=== PATIENT | male | born 1960 | race Caucasian/White ===

== ENCOUNTER 2018-06-21 07:40 | Observation (INO) | payer OTHER ==
[2018-06-21] MEDS ORDERED: HYDROmorphone 2 MG/ML Syringe IVPUSH ONE ×2 (07:46→08:06)
[2018-06-21] MEDS ORDERED: HYDROmorphone 2 MG/ML Syringe ONE (07:46)
[2018-06-21] MEDS ORDERED: Lidocaine 1% 20 ML MDV INJECT ONE ×2 (07:50→08:15)
--- NOTE | 2018-06-21 07:51 | EDM.PDOC ---
ED HPI GENERAL MEDICAL PROBLEM - General Stated Complaint: POSSIBLE BROKEN LEFT LEG Time Seen by Provider: 06/21/18 07:51 Source of Information: Reports: Patient - History of Present Illness INITIAL COMMENTS - FREE TEXT/NARRATIVE: HISTORY AND PHYSICAL: History of present illness: [Patient slipped on ice just prior to arrival he has obvious deformity of the right ankle suspected fracture and dislocation foot is neurovascularly intact Eyes any head injury or loss of consciousness ] Review of systems: As per history of present illness and below otherwise all systems reviewed and negative. Past medical history: As per history of present illness and as reviewed below otherwise noncontributory. Surgical history: As per history of present illness and as reviewed below otherwise noncontributory. Social history: No reported history of drug or alcohol abuse. Family history: As per history of present illness and as reviewed below otherwise noncontributory. Physical exam: HEENT: Atraumatic, normocephalic, pupils reactive, negative for conjunctival pallor or scleral icterus, mucous membranes moist, throat clear, neck supple, nontender, trachea midline. Lungs: Clear to auscultation, breath sounds equal bilaterally, chest nontender. Heart: S1S2, regular, negative for clicks, rubs, or JVD. Abdomen: Soft, nondistended, nontender. Negative for masses or hepatosplenomegaly. Negative for costovertebral tenderness. Pelvis: Stable nontender. Genitourinary: Deferred. Rectal: Deferred. Extremities: Atraumatic, negative for cords or calf pain. Neurovascular unremarkable. Neuro: Awake, alert, oriented. Cranial nerves II through XII unremarkable. Cerebellum unremarkable. Motor and sensory unremarkable throughout. Exam nonfocal. Diagnostics: []CBC CMP UA INR EKG Chest 1 view Right ankle complete Therapeutics: Dilaudid2 mg IV [address] sevilla consult in to evaluate and treat Conscious sedation performed via anesthesia-with propofol and intubation, reduction easily achieved lower extremity is splinted remains neurovascularly intact no complications Patient will be going to surgery on an outpatient basis with Dr. Sevilla Impression: [] right ankle fracture with dislocation Definitive disposition and diagnosis as appropriate pending reevaluation and review of above. right ankle Pain Score (Numeric/FACES): 10 - Related Data Allergies Allergy/AdvReac Type Severity Reaction Status Date / Time No Known Allergies Allergy Verified 06/21/18 09:54 Home Meds: Home Meds . [No Known Home Meds] 06/21/18 [History] ED ROS GENERAL - Review of Systems Review Of Systems: See Below ED EXAM, GENERAL - Physical Exam Exam: See Below Course - Vital Signs Last Recorded V/S: Last Vital Signs Temp 97.0 F 06/21/18 07:40 Pulse 79 06/21/18 09:50 Resp 16 06/21/18 09:50 BP 102/67 06/21/18 09:50 Pulse Ox 90 L 06/21/18 09:50 - Orders/Labs/Meds Orders: Active Orders 24 hr Category Date Time Status EKG Documentation Completion [RC] STAT Care 06/21/18 08:49 Active Notify Provider Consults [RC] ASDIRECTED Care 06/21/18 08:47 Active Consult to Physician [CONS] Stat Cons 06/21/18 08:46 Active Ankle Min 3V Rt [CR] Stat Exams 06/21/18 07:50 Ordered Chest 1V Frontal [CR] Stat Exams 06/21/18 08:49 Ordered UA RFX LISA AND CULT IF INDIC [URIN] Stat Lab 06/21/18 08:48 Ordered Labs: Laboratory Tests 06/21/18 06/21/18 06/21/18 Range/Units 07:45 07:45 07:45 WBC 14.61 H (4.0-11.0) K/uL RBC 5.54 (4.50-5.90) M/uL Hgb 18.1 H (13.0-17.0) g/dL Hct 49.8 (38.0-50.0) % MCV 89.9 (80.0-98.0) fL MCH 32.7 H (27.0-32.0) pg MCHC 36.3 (31.0-37.0) g/dL RDW Std Deviation 41.6 (28.0-62.0) fl RDW Coeff of Ar 13 (11.0-15.0) % Plt Count 341 (150-400) K/uL MPV 11.80 (7.40-12.00) fL Neut % (Auto) 43.8 L (48.0-80.0) % Lymph % (Auto) 42.1 H (16.0-40.0) % [place] % (Auto) 10.3 (0.0-15.0) % Eos % (Auto) 3.2 (0.0-7.0) % Baso % (Auto) 0.6 (0.0-1.5) % Neut # (Auto) 6.4 H (1.4-5.7) K/uL Lymph # (Auto) 6.2 H (0.6-2.4) K/uL [place] # (Auto) 1.5 H (0.0-0.8) K/uL Eos # (Auto) 0.5 (0.0-0.7) K/uL Baso # (Auto) 0.1 (0.0-0.1) K/uL Nucleated RBC % 0.0 /100WBC Nucleated RBCs # 0 K/uL INR 1.00 Sodium 139 (136-148) mmol/L Potassium 3.4 L (3.5-5.1) mmol/L Chloride 104 (98-107) mmol/L Carbon Dioxide 22.0 (21.0-32.0) mmol/L BUN 13 (7.0-18.0) mg/dL Creatinine 1.4 H (0.8-1.3) mg/dL Est Cr Clr Drug Dosing 68.50 mL/min Estimated GFR (MDRD) 52.4 ml/min Glucose 145 H (74-106) mg/dL Calcium 9.5 (8.5-10.1) mg/dL Total Bilirubin 0.4 (0.2-1.0) mg/dL AST 21 (15-37) IU/L ALT 42 (14-63) IU/L Alkaline Phosphatase 99 (46-116) U/L Total Protein 7.8 (6.4-8.2) g/dL Albumin 3.5 (3.4-5.0) g/dL Globulin 4.3 H (2.6-4.0) g/dL Albumin/Globulin Ratio 0.8 L (0.9-1.6) Meds: Medications Discontinued Medications Generic Name Dose Route Start Last Admin Trade Name Freq PRN Reason Stop Dose Admin Hydromorphone HCl 2 mg 06/21/18 07:46 06/21/18 07:48 Dilaudid IVPUSH 06/21/18 07:47 2 mg ONETIME ONE Administration Hydromorphone HCl Confirm 06/21/18 07:46 06/21/18 07:51 Dilaudid Administered 06/21/18 07:47 Not Given Dose 2 mg .ROUTE .STK-MED ONE Hydromorphone HCl 2 mg 06/21/18 08:06 06/21/18 08:14 Dilaudid IVPUSH 06/21/18 08:07 2 mg ONETIME ONE Administration Lidocaine Confirm 06/21/18 08:45 Xylocaine-Mpf 2% Administered 06/21/18 08:46 Dose 5 ml .ROUTE .STK-MED ONE Lidocaine HCl 20 ml 06/21/18 07:50 06/21/18 08:19 Xylocaine 1% INJECT 06/21/18 07:51 Not Given ONETIME ONE Lidocaine HCl Confirm 06/21/18 07:52 06/21/18 08:18 Xylocaine 1% Administered 06/21/18 07:53 50 ml Dose Administration 50 ml .ROUTE .STK-MED ONE Lidocaine HCl 50 ml 06/21/18 08:15 06/21/18 08:18 Xylocaine 1% INJECT 06/21/18 08:16 Not Given ONETIME ONE Midazolam HCl Confirm 06/21/18 08:45 Versed 1 Mg/Ml Administered 06/21/18 08:46 Dose 2 mg .ROUTE .STK-MED ONE Propofol Confirm 06/21/18 08:45 Diprivan 20 Ml Administered 06/21/18 08:46 Dose 400 mg .ROUTE .STK-MED ONE Rocuronium [place] Confirm 06/21/18 08:45 Zemuron Administered 06/21/18 08:46 Dose 100 mg .ROUTE .STK-MED ONE Succinylcholine Chloride Confirm 06/21/18 08:45 Quelicin Administered 06/21/18 08:46 Dose 200 mg .ROUTE .STK-MED ONE Departure - Departure Time of Disposition: 10:24 Disposition: Still A Patient 30 Condition: Fair Clinical Impression: Right ankle injury - Discharge Information Referrals: PCP,None [Primary Care Provider] - - My Orders Last 24 Hours: My Active Orders 06/21/18 07:50 Ankle Min 3V Rt [CR] Stat 06/21/18 08:46 Consult to Physician [CONS] Stat 06/21/18 08:47 Notify Provider Consults [RC] ASDIRECTED 06/21/18 08:48 UA RFX LISA AND CULT IF INDIC [URIN] Stat 06/21/18 08:49 EKG Documentation Completion [RC] STAT Chest 1V Frontal [CR] Stat - Assessment/Plan Last 24 Hours: My Active Orders 06/21/18 07:50 Ankle Min 3V Rt [CR] Stat 06/21/18 08:46 Consult to Physician [CONS] Stat 06/21/18 08:47 Notify Provider Consults [RC] ASDIRECTED 06/21/18 08:48 UA RFX LISA AND CULT IF INDIC [URIN] Stat 06/21/18 08:49 EKG Documentation Completion [RC] STAT Chest 1V Frontal [CR] Stat
[2018-06-21] MEDS ORDERED: Lidocaine 1% 50 ML MDV ONE (07:52)
[2018-06-21] MEDS ORDERED: Midazolam 1 MG/ML 2 ML SDV ONE ×2 (08:45→12:58)
[2018-06-21] MEDS ORDERED: Propofol 200 MG/20 ML SDV ONE ×3 (08:45→13:30)
[2018-06-21] MEDS ORDERED: Lidocaine 2% 5 ML SDV ONE (08:45)
[2018-06-21] MEDS ORDERED: Succinylcholine 200 MG/10 ML MDV ONE (08:45)
[2018-06-21] MEDS ORDERED: Rocuronium 10 MG/ML 10 ML Syringe ONE (08:45)
--- NOTE | 2018-06-21 08:48 | PCM.PREANE ---
Preanesthetic Assessment - Anesthesia/Transfusion/Family Hx Anesthesia History: Prior Anesthesia Without Reaction (Pt recalls only sedation for wisdom teeth removal) Family History of Anesthesia Reaction: No Transfusion History: No Prior Transfusion(s) - Review of Systems General: Other (diaphoretic - clothes on under hospital gown) Pulmonary: No Symptoms Cardiovascular: No Symptoms Gastrointestinal: No Symptoms Neurological: Other (R ankle pain d/t fx and dislocation) Other: Reports: None - Physical Assessment NPO Status Date: 06/21/18 NPO Status Time: 06:30 (Breakfast Burrito) O2 Sat by Pulse Oximetry: 94 Respiratory Rate: 16 Vital Signs: Last Vital Signs Temp 97.0 F 06/21/18 07:40 Pulse 106 H 06/21/18 07:40 Resp 16 06/21/18 07:40 BP 125/83 06/21/18 07:40 Pulse Ox 94 L 06/21/18 07:40 Height: 6 ft 2 in Weight: 230 lb ASA Class: 2E Mental Status: Alert & Oriented x3 Airway Class: Mallampati = 3 (small mouth) Dentition: Reports: Broken Tooth/Teeth (front upper chipped teeth) Thyro-Mental Finger Breadths: 3 Mouth Opening Finger Breadths: 3 ROM/Head Extension: Full Lungs: Clear to Auscultation, Normal Respiratory Effort Cardiovascular: Regular Rate, Regular Rhythm - Blood Blood Available: No Product(s) Available: None - Anesthesia Plan Free Text/Narrative:: GETA with RSI d/t recent breakfast - will extubate in ER as soon as pt regains control of his airway - Acknowledgements Anesthesia Type Planned: General Anesthesia Pt an Appropriate Candidate for the Planned Anesthesia: Yes Alternatives and Risks of Anesthesia Discussed w Pt/Guardian: Yes Pt/Guardian Understands and Agrees with Anesthesia Plan: Yes PreAnesthesia Questionnaire - Past Health History Medical/Surgical History: Denies Medical/Surgical History - SUBSTANCE USE Smoking Status *Q: Current Every Day Smoker Tobacco Use Within Last Twelve Months: Cigarettes Recreational Drug Use History: No - CURRENT (IN HOUSE) MEDS Current Meds: Current Medications Discontinued Medications Hydromorphone HCl (Dilaudid) 2 mg IVPUSH ONETIME ONE Stop: 06/21/18 07:47 Last Admin: 06/21/18 07:48 Dose: 2 mg Hydromorphone HCl (Dilaudid) Confirm Administered Dose 2 mg .ROUTE .STK-MED ONE Stop: 06/21/18 07:47 Last Admin: 06/21/18 07:51 Dose: Not Given Hydromorphone HCl (Dilaudid) 2 mg IVPUSH ONETIME ONE Stop: 06/21/18 08:07 Last Admin: 06/21/18 08:14 Dose: 2 mg Lidocaine (Xylocaine-Mpf 2%) Confirm Administered Dose 5 ml .ROUTE .STK-MED ONE Stop: 06/21/18 08:46 Lidocaine HCl (Xylocaine 1%) 20 ml INJECT ONETIME ONE Stop: 06/21/18 07:51 Last Admin: 06/21/18 08:19 Dose: Not Given Lidocaine HCl (Xylocaine 1%) Confirm Administered Dose 50 ml .ROUTE .ST-MED ONE Stop: 06/21/18 07:53 Last Admin: 06/21/18 08:18 Dose: 50 ml Lidocaine HCl (Xylocaine 1%) 50 ml INJECT ONETIME ONE Stop: 06/21/18 08:16 Last Admin: 06/21/18 08:18 Dose: Not Given Midazolam HCl (Versed 1 Mg/Ml) Confirm Administered Dose 2 mg .ROUTE .ST-MED ONE Stop: 06/21/18 08:46 Propofol (Diprivan 20 Ml) Confirm Administered Dose 400 mg .ROUTE .ST-MED ONE Stop: 06/21/18 08:46 Rocuronium [place] (Zemuron) Confirm Administered Dose 100 mg .ROUTE .ST-MED ONE Stop: 06/21/18 08:46 Succinylcholine Chloride (Quelicin) Confirm Administered Dose 200 mg .ROUTE .ST -MED ONE Stop: 06/21/18 08:46
[2018-06-21] MEDS ORDERED: Morphine 10 MG/ML Syringe IVPUSH PRN (10:24)
[2018-06-21] MEDS ORDERED: ceFAZolin 2 GM in Premix Bag 1 BAG IV SCH ×2 (10:30→21:30)
--- NOTE | 2018-06-21 10:52 | CR ---
EXAMINATION: Portable chest radiograph. HISTORY: Shortness breath. FINDINGS: The trachea is midline. The cardiomediastinal silhouette is within normal limits. Bibasilar atelectasis and/or infiltrate. No definite pleural effusion or pneumothorax. Osseous structures appear unremarkable. IMPRESSION: Mild bibasal atelectasis and/or infiltrate.
--- NOTE | 2018-06-21 11:18 | CR ---
EXAM DATE: 06/21/18 PATIENT'S AGE: 57 Patient: KAIN CRUZ Facility: [place], [place] Site Site : 1960 Study: XRay Extremity Right [id number]/22/2019 9:02:20 AM Ordering Physician: STEPHANIE Final Report: INDICATION: Pain and injury. TECHNIQUE: Three-views of the right ankle. FINDINGS: There is a fracture/dislocation at the right ankle. The talus is dislocated posteriorly in relation to the distal tibia. There is a spiral/oblique fracture of the distal fibula with lateral displacement and posterior angulation. There is also a fracture of the medial malleolus. IMPRESSION: 1. Posterior dislocation of the talus. 2. Fracture of the distal fibula with lateral displacement and posterior angulation. 3. Fracture of the medial malleolus of the tibia. Dictated by Julius Huang MD @ Jun 21 2018 9:27AM (Electronic Signature) Report Signed by Proxy. BARBRA
[2018-06-21] MEDS ORDERED: fentaNYL 250 MCG/5 ML SDV ONE (12:58)
[2018-06-21] MEDS ORDERED: Bupivacaine 0.25% 10 ML SDV ONE (13:05)
[2018-06-21] MEDS ORDERED: ceFAZolin/Dextrose,Iso-Osmotic 2 GM/50 ML Duplex Bag IV ONE (13:08)
[2018-06-21] MEDS ORDERED: Phenylephrine/Normal Saline 100 MCG/ML 10 ML Syringe ONE (13:36)
[2018-06-21] MEDS ORDERED: diphenhydrAMINE 50 MG/ML SDV IVPUSH PRN ×2 (14:21→14:44)
[2018-06-21] MEDS ORDERED: Ondansetron 4 MG/2 ML SDV IVPUSH PRN ×2 (14:24→14:44)
[2018-06-21] MEDS ORDERED: fentaNYL 100 MCG/2 ML SDV IVPUSH PRN (14:25)
--- NOTE | 2018-06-21 14:37 | PCM.OPNOTE ---
- General Post-Op/Procedure Note Date of Surgery/Procedure: 06/21/18 Operative Procedure(s): ORIF right ankle bimalleolar fracture and syndesmosis Pre Op Diagnosis: right ankle bimalleolar fracture dislocation with syndesmotic dysruption Post-Op Diagnosis: same Anesthesia Technique: Moderate Sedation, Spinal Primary Surgeon: Klaus Charles Mai It Administrative Assistant: Jill Woodruff in mLs: 20 Condition: Good
[2018-06-21] MEDS ORDERED: Acetaminophen/HYDROcodone 325-10 MG Tab PO PRN (14:44)
[2018-06-21] MEDS ORDERED: Ketorolac 30 MG/ML SDV IVPUSH PRN (14:44)
[2018-06-21] MEDS ORDERED: traMADol 50 MG Tab PO PRN (14:44)
[2018-06-21] MEDS ORDERED: Nicotine 14 MG/24 Hr Patch TRDERM PRN (15:29)
--- NOTE | 2018-06-21 15:29 | PCM.POSTAN ---
POST ANESTHESIA ASSESSMENT - MENTAL STATUS Mental Status: Alert, Oriented - VITAL SIGNS Pulse Rate: 71 SaO2: 94 Resp Rate: 11 Blood Pressure: 109/73 - RESPIRATORY Respiratory Status: Respiratory Rate WNL, Airway Patent, O2 Saturation Stable - CARDIOVASCULAR CV Status: Pulse Rate WNL, Blood Pressure Stable - GASTROINTESTINAL GI Status: No Symptoms - PAIN Pain Score: 0 (spinal still intact) - POST OP HYDRATION Hydration Status: Adequate & Stable - OBSERVATIONS Free Text/Narrative:: Pt complaining about having to stay the night because he would like to go smoke. Explained the situation with his oxygen saturation running in the 80% range prior to surgery and our concern for his well being. Offered to order him a nicotine patch - pt declined at this time, but will place order in the computer if pt would like at a later time. No pain at this time as spinal still intact.
--- NOTE | 2018-06-21 16:15 | HP ---
DATE OF : 1960 PRIMARY CARE PHYSICIAN: None PCP SUBJECTIVE: The patient is here for right ankle pain in the ER. He tripped and fell this morning on the ice in his boots at work twisting his ankle. He had immediate pain and deformity. He presented to the ER. X-rays were taken, showed ankle fracture dislocation. He is having severe pain. He has palpable pulses. He denies any other injury. He denies history of fractures. PAST MEDICAL HISTORY: None. PAST SURGICAL HISTORY: None. MEDICATIONS: None. ALLERGIES: None. SOCIAL HISTORY: No illicits. REVIEW OF SYSTEMS: Fourteen-point review is, otherwise, negative. PHYSICAL EXAMINATION: GENERAL: In no apparent distress. Oriented x3. HEENT: Mucous membranes are moist. Anicteric. LUNGS: Clear and symmetric expansion. CARDIOVASCULAR: Regular rate and rhythm with 2+ dorsalis pedis pulse to the right lower extremity. ABDOMEN: Soft. EXTREMITIES: The right ankle demonstrates deformity. There is some pressure on the medial aspect of the ankle. He has been able to wiggle his toes well. He has normal sensation in the saphenous sural, deep peroneal, superficial peroneal, and tibial nerves. IMAGING: X-rays of the right ankle demonstrate a fracture dislocation with a large posterior medial fragment of the tibia including the medial malleolus. There is a higher fibular fracture, at least 10 to 15 cm, above the ankle joint with complete disruption of the syndesmosis. PROCEDURE: After verbal informed consent, due to the tension on the skin, the anterior ankle was prepped with ChloraPrep, and 10 mL of 1% lidocaine was injected. He was given Dilaudid, attempted reduction with flexing the knee, and traction was unsuccessful due to muscle tension and movement. Therefore, at this point, the ER doctor will reduce under sedation. ASSESSMENT: Right ankle fracture dislocation. PLAN: I discussed the diagnosis and treatment options with the patient measures. He will be reduced by ER physician under sedation, and we will plan on open reduction and internal fixation today. I have informed him that this will likely not do well without surgery given the severe fracture dislocation and disruption of the tibia and fibula. He may require a complicated fixation of the posterior medial malleolus and will require multiple syndesmotic screws to maintain nonweightbearing for 6 weeks afterwards. The risks, benefits, and complications of the procedure including but not limited to infection, neurovascular injury, continued pain, malunion, nonunion, ankle arthritis, and superficial peroneal nerve all discussed with him, and he wished to proceed. RENAY PURCELL /[id number]
--- NOTE | 2018-06-21 16:42 | CR ---
EXAMINATION: Right ankle HISTORY: Post reduction film COMPARISON: 06/21/2018 TECHNIQUE: 2 views FINDINGS/IMPRESSION: There is a mildly displaced distal fibular diaphysis fracture identified, mildly improved in alignment. The tibiotalar joint demonstrates successful reduction with a resulting mildly displaced medial malleolus fracture. Overlying soft tissue swelling is noted.
--- NOTE | 2018-06-21 16:47 | CR ---
EXAMINATION: Right ankle HISTORY: ORIF COMPARISON: Same day TECHNIQUE: 6 fluoroscopic images provided FINDINGS/IMPRESSION: Operative control films demonstrate screw and plate fixation of a distal fibular fracture. 2 screws fixate the syndesmosis and additional 2 screws fixate the medial malleolus fracture. Position and alignment appear near anatomic.
[2018-06-21] MEDS: Morphine 2 MG/ML Syringe IVPUSH SCH ×2 (19:52→19:53)
[2018-06-21] MEDS ORDERED: Docusate Sodium 100 MG Cap PO SCH (21:00)
--- NOTE | 2018-06-21 22:24 | OR ---
SURGEON: Klaus Sevilla MD DATE OF PROCEDURE: 06/21/2018 PALLIATIVE CARE PHYSICIAN: Jill Woodruff PA-C. PREOPERATIVE DIAGNOSIS: Right ankle bimalleolar fracture dislocation with syndesmotic disruption. POSTOPERATIVE DIAGNOSIS: Right ankle bimalleolar fracture dislocation with syndesmotic disruption. OPERATION PERFORMED: Open reduction and internal fixation, right ankle bimalleolar fracture and ORIF of syndesmosis. ANESTHESIA: Spinal and sedation. COMPLICATION: None. ESTIMATED BLOOD LOSS: 20 mL. SPECIMEN: None. TOURNIQUET TIME: 44 minutes. IMPLANTS: [place] 3.5 LCDC plate, 7-hole with seven 3.5 cortical screws, two of which were syndesmotic screws and two 4.0 fully threaded cancellous screws. INDICATIONS: The patient is a 57-year-old male, who slipped on the ice earlier today suffering a fracture dislocation, he was reduced. Due to some displacement and severe disruption of the syndesmosis, decision was made to proceed with surgery. I discussed with him the risks, benefits, alternatives, complications of procedure including, but not limited to, infection, neurovascular injury, continued pain, DVT, PE, stroke, CT, , malunion nonunion, arthritis, he wished to proceed. DESCRIPITION OF PROCEDURE: The patient was seen in the preoperative area. Operative extremity was marked with the patient. He was transferred to the operating room where spinal anesthetic was given. He was placed supine on the operating room table and sedation was given. Right leg was prepped and draped in usual sterile fashion alcohol followed by ChloraPrep. After placed in a well-padded upper thigh tourniquet, he received preop antibiotics of Ancef, a formal time-out was taken, identifying the correct patient, procedure, and extremity. Limb was exsanguinated with an Esmarch bandage. Tourniquet was inflated to 250 mmHg. A 10-cm incision centered over the fibula, the fracture alignment was approximately 10-12 cm above the tip of the fibula and dissection was carried out through subcutaneous tissues. The superficial peroneal nerve was found in superior aspect and protected. Subperiosteal dissection over the fibula was made and the fracture was able to be reduced. It was attempted to place was too small in this area. Therefore, a 7-hole 3.5 LCDC plate was placed over it after holding it with a K-wire. Two distal 3.5 bicortical screws and three proximal 3.5 bicortical screws were placed. reduced anatomically, the distal hole was left open for later syndesmotic screw. He had complete disruption of the syndesmosis which was noted. After this, a 5 cm incision over the medial malleolus was made. Dissection was carried out through the subcutaneous tissues hematoma. The saphenous nerve and vein were pulled anteriorly. There was a complex fracture of the posterior medial aspect with a flap of bone on the medial aspect. This was able to be reduced after drilling a hole in the bone with a reduction clamp and then in the posterior distal to anterior proximal, two fully-threaded 4.0 Cancellous screws were placed, was able to hold it reduced anatomically. Following this, the joint did open, therefore a periarticular reduction clamp was placed across the fibula and tibia holding reduced the ankle in slight dorsiflexion. The distal hole of the plate was placed parallel to the joint in tricortical fashion and then one distal to it about 2 cm off the joint another screw was placed, tricortical aiming 30 degrees anteriorly. The wound was then thoroughly irrigated. Tourniquet was deflated. The final x-rays confirmed anatomic reduction of the fracture and the syndesmosis. The subcutaneous tissues were closed with 2-0 Vicryl and skin was closed with sarita. Xeroform and sterile dressings applied, and a [place] splint was placed. The patient was transferred to the recovery room in stable condition. Sponge and needle counts correct at the end of the case. No complications. He will be kept nonweightbearing. RENAY / BINH /[id number]
[2018-06-22] MEDS ORDERED: Aspirin 325 MG Tab PO SCH (09:00)
== END 2018-06-21 19:00 | disposition home or self-care (01) ==
LOC: MW.ED 07:40 → MW.SDS 10:25 → MW.ED 10:33 → MW.MS 14:44
PROVIDERS: ADMIT Orthopaedic Surgery; ATTEND Orthopaedic Surgery
DX: S82.841A Displaced bimalleolar fracture of right lower leg, initial encounter for closed fracture (principal); S93.431A Sprain of tibiofibular ligament of right ankle, initial encounter; F17.210 Nicotine dependence, cigarettes, uncomplicated; W00.0XXA Fall on same level due to ice and snow, initial encounter; Y99.0 Civilian activity done for income or pay
CPT/HCPCS: 27814; 27829; 36415; 71045; 73600; 73610; 76000; 80053; 85025; 85610; 93005; 96374; 99285; C1713; J0330; J0690; J1170; J2250; J2370; J2704; J3010; J3490; J2001